=== PATIENT | male | born 1965 | race Caucasian/White ===

== ENCOUNTER → 2020-10-14 11:03 | Outpatient (REF) | payer SELFPAY | LOC: ANHLAB 11:03 | PROVIDERS: PCP Internal Medicine; Visit Provider Nurse Practitioner | DX: D49.2 Neoplasm of unspecified behavior of bone, soft tissue, and skin (principal) | CPT/HCPCS: 88305 ==

== ENCOUNTER → 2021-03-31 14:27 | Outpatient (CLI) | payer SELFPAY ==
--- NOTE | ~2021-03-31 | XR_ITS ---
XR tibia fibula LT 2V DATE: 03/31/2021 15:07 INDICATION: Pain TECHNIQUE: AP and lateral views COMPARISON: 10/11/2019 left ankle FINDINGS: No fracture or dislocation, periosteal reaction or bone destruction. Normal alignment at th e knee and ankle joints. Minimal pericolic stranding, consistent with mild osteoarthritis at the cordoba llofemoral joint. IMPRESSION: Mild osteoarthritis at the patellofemoral joint. Reviewed, dictated and finalized at location A.
== END ==
PROVIDERS: PCP Internal Medicine; Visit Provider Nurse Practitioner
DX: M17.12 Unilateral primary osteoarthritis, left knee (principal)
CPT/HCPCS: 73590

== ENCOUNTER 2021-10-23 14:38 | Outpatient (CLI) | payer OTHER, SELFPAY ==
--- NOTE | ~2021-10-23 | XR_ITS ---
EXAMINATION: XR lumbar spine 2-3V EXAM DATE: 10/23/2021 15:04 INDICATION: Pain after lifting injury 2 weeks ago. TECHNIQUE: Lumber spine frontal, lateral, lateral L5-S1 projections for interpretation. There is no prior study for comparison. FINDINGS: There is moderate disc disease T12-L1 and L2-3, mild to moderate at the other lumbar level s there is moderate lumbar facet arthropathy. These is L2 on L3, L3 on L4 and L4 on L5. 4 retrolisthe sis L5 on S1. No spondylolysis. Sacrum, sacroiliac joints, sacral arcuate lines are intact. Mild thor acolumbar scoliosis. IMPRESSION: Moderate lumbar spondylosis. No acute findings. Reviewed, dictated and finalized at location G. 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
== END 2021-10-23 14:39 | disposition home or self-care (01) ==
PROVIDERS: PCP Internal Medicine; Visit Provider Internal Medicine
DX: M47.26 Other spondylosis with radiculopathy, lumbar region (principal)
CPT/HCPCS: 72100

== ENCOUNTER 2021-11-25 15:36 | Outpatient (CLI) | payer OTHER, SELFPAY ==
--- NOTE | ~2021-11-25 | MR_ITS ---
EXAMINATION: MR lumbar spine wo con DATE: 11/25/2021 16:26 INDICATION: Lumbar radiculopathy. TECHNIQUE: Magnetic resonance imaging (MRI) of the lumbar spine was performed without intravenous con trast. Sequences included sagittal T2-weighted FSE, sagittal T2-weighted FS FSE, sagittal T1-weighted FSE, and axial T2-weighted FSE. COMPARISON: Lumbar spine MRI 07/01/2017 FINDINGS: There is 11 degrees dextroscoliosis of lumbar spine. There is 3 mm retrolisthesis of L2 on L3, L3 on L4, and L4 on L5. Vertebral body heights are normal. There is severely decreased disc heigh t at L1-L2, moderately decreased disc height at L2-L3, severely decreased disc height at L3-L4, moder ately decreased disc height at L4-L5, and severely decreased disc height at L5-S1 with endplate remod eling. The distal spinal cord signal intensity is normal. The conus medullaris is at L1.. The followi ng disc levels are specifically discussed: L1-L2: The disc is bulging and has an annular fissure. There is mild right facet joint osteoarthritis . There is no neural foraminal stenosis. There is mild central canal stenosis. L2-L3: The disc is bulging and has an annular fissure. There is mild bilateral facet joint osteoarthr itis. There is mild bilateral neural foraminal stenosis. There is mild central canal stenosis. L3-L4: The disc is bulging and has an annular fissure. There is mild bilateral facet joint osteoarthr itis. There is mild right and moderate left neural foraminal stenosis. There is mild central canal st enosis. L4-L5: The disc is bulging and has an annular fissure. There is moderate bilateral facet joint osteoa rthritis. There is moderate right and mild left neural foraminal stenosis. There is mild central dyan l stenosis. L5-S1: The disc is bulging and has an annular fissure. There is moderate bilateral facet joint osteoa rthritis. There is mild bilateral neural foraminal stenosis. There is mild central canal stenosis. IMPRESSION: 1. Severe lumbar spondylosis, worsened from 07/01/2017. 2. Lumbar dextroscoliosis. Reviewed, dictated and finalized at location E. RECLAMATION SPECIALIST
== END 2021-11-25 15:37 | disposition home or self-care (01) ==
LOC: ANHIMG 15:36
PROVIDERS: PCP Internal Medicine; Visit Provider Internal Medicine
DX: M47.26 Other spondylosis with radiculopathy, lumbar region (principal)
CPT/HCPCS: 72148

== ENCOUNTER 2022-07-06 08:00 | Outpatient (NON) | payer OTHER, SELFPAY | END 2022-07-06 08:01 | disposition home or self-care (01) | LOC: ANHLAB 07-07 12:32 | PROVIDERS: PCP Internal Medicine; Visit Provider Surgery Plastic and Reconstructive Surgery | DX: D49.2 Neoplasm of unspecified behavior of bone, soft tissue, and skin (principal) | CPT/HCPCS: 88305 ==

== ENCOUNTER 2024-12-21 16:21 | Emergency (ER) | payer OTHER, SELFPAY ==
--- OUTSIDE RECORDS SUMMARY | 2024-12-21 16:23 | XMS_ITS | Clinical Summary ---
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 Name Role Phone Unavailable Primary Care Provider Unavailabl e Social History Tobacco Use Types Packs/Day Years Used Date Smoking Tobacco: Never Assessed Sex and Gender Information Value Date Recorded Sex Assigned at Not on file Legal Sex Male 12:19 PM CDT Gender Identity Not on file Sexual Orientation Not on file Plan of Treatment Health Maintenance Due Date Last Done Comments Hepatitis C Virus (HCV) Screening 1965 TdaP Immunization 1967 Hepatitis B Immunization (1 of 3 - 19+ 3-dose series) 1986 Colonoscopy 2012 Colorectal Cancer Screening 2012 Cologuard 2017 Immunochemical Fecal Occult Blood 2017 Pneumococcal Immunization (5 0+ years) (1 of 1 - PCV) 2017 Zoster Immunization (1 of 2) 2017 PSA Discussion 2022 Influenza Immunization (#1) 2024 SARS-COV-2 Immunization ( - season) 2024 Respiratory Syncytial Virus (RSV) Immunization (Adult) (1 - 1-dose 75+ series) 2042 Meningococcal Immunization (ACWY) Aged Out No longer eligible based on patient's age to complete this topic Pneumococcal Immunization Combined Aged Out No longer eligible based on patient's age to complete this topic Rotavirus Immunization Aged Out No lo nger eligible based on patient's age to complete this topic
[2024-12-21 17:00] VITALS: BP 153/109; PULSE 91; RESP 20; TEMP 36.6; O2SAT 100
--- OUTSIDE RECORDS SUMMARY | 2024-12-21 21:09 | XMS_ITS | Data Portability ---
Author Organization [place] [facility] [employer], Main Office Address [address] [place] [address] Assessment No assessment recorded. Plan of Treatment Reminders Order Date Submit Date Provider Last Modified By Organization Details Last Modified Time Details Appointments Follow Up 15 2024 02:45P BRISEIDA Lea Not available Not available Not available Lab CBC w/ auto diff [email or web address] (Lab), [address] [place], [address], 03/07/2024 10:51:21 CMP, serum or plasma 2023 024 [facility] (Lab), [address] [place], [address], 03/13/2024 15:06:42 lipid panel, serum 2023 024 [facility] (Lab), [address] [place], [address], 03/13/2024 15:06:39 TSH + free T4, serum 2023 024 [facility] (Lab), [address] [place], [address], 03/13/2024 15:06:40 PSA, serum or plasma 2023 024 [facility] (Lab), [address] [place], [address], 03/13/2024 15:06:46 HbA1c (hemoglob in A1c), blood 2023 024 [facility] (Lab), [address] [place], [address], 03/13/2024 15:06:50 TSH, serum or plasma 2023 024 [facility] (Lab), [address] [place], [address], 03/13/2024 15:06:48 thyroid peroxidas e (tpo) Ab, serum 2023 024 [facility] (Lab), [address] [place], [address], 03/13/2024 15:06:45 Hepatitis B virus core Ab, qual immunoass ay, serum or plasma [address] (Lab), [address] [place], [address], 03/14/2024 08:28:41 vitamin B12 + folate, serum or blood 2023 024 [facility] (Lab), [address] [place], [address], 03/13/2024 15:06:47 vitamin D3, 25-hydrox y, serum [address] (Lab), [address] [place], [address], 03/14/2024 08:28:42 testoster one, free + total, serum 2023 024 [facility] (Lab), [address] [place], [address], 03/13/2024 15:06:51 CBC w/ auto diff 2023 024 [facility] (Lab), [address] [place], [address], 03/13/2024 15:06:43 lipid panel, serum 2023 024 [email or web address] [facility] (Lab), [address] [place], [address], 03/14/2024 08:28:[address] referral - Please call patient to schedule an appointme nt. Thank you. 2023 024 [email or web address] [facility], [address] [facility], [address], [place], [address], 06/16/2024 07:45:37 Procedures None recorded. Surgeries None recorded. Imaging None recorded. Medication Orders prednison e 20 mg tablet 2024 025 [facility] #[id number], [address] [place], [address], 12/03/2024 15:50:17 promethaz ine-DM 6.25 mg-15 mg/5 mL oral syrup 2024 025 [id number], [address], [place], [id number], 12/03/2024 15:56:14 dextroamp hetamine- amphetami ne ER 30 mg 24hr capsule,e xtend release 2024 025 [facility] #3259, [address] [place], [address], 12/03/2024 15:53:32 hydrocodo ne 7.5 mg-acetam inophen 325 mg tablet 2023 024 [facility] #3259, [address] [place], [address], 08/30/2024 12:08:04 Depo-Medr ol 80 mg/mL suspensio n for injection 2023 024 [email or web address] Not available 05/15/2024 16:44:21 dextroamp hetamine- amphetami ne ER 30 mg 24hr capsule,e xtend release 2023 024 [facility] #2554, [address] [place], [address], 05/15/2024 16:26:21 Patient TargetsNo targets recorded. Patient InstructionsNo instructions recorded. 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 Thank you. Referring Physician: Perfecto Gallardo, Family Medicine, Encounter Date: 05/15/2024 Results Created Date Observation Date Name Description Value Unit Range Abnormal Flag Note LastModifiedBy Organization Detail LastModifiedTime 03/09/20 24 03/13/2024 LIPID PANEL , STAND SRAVANI cholesterol, total 274 mg/dL <200 high Not Available [facility] [address] [address] [place], [address], 03/13/2024 15:06:39 03/09/20 24 03/13/2024 LIPID PANEL , STAND SRAVANI HDL cholesterol 75 mg/dL > or = 40 normal Not Available [facility] [address] [address] [place], [address], 03/13/2024 15:06:39 03/09/20 24 03/13/2024 LIPID PANEL , STAND SRAVANI triglyceride s 201 mg/dL <150 high If a non-f astin g speci men was colle cted, consi sraay repea t trigl yceri de testi ng on a fasti ng speci men if clini dudley indic ated. Imer harp et al. J. of Clin. Lipid ol. 2015; 9:129 -169. Not Available [facility] [address] [place], [address], 03/13/2024 15:06:39 03/09/20 24 03/13/2024 LIPID PANEL , STAND SRAVANI LDL-choleste rol 162 mg/dL _(jarred c) high Refer ence range : <100 Vlad able range <100 mg/dL for prima ry preve ntion ; <70 mg/dL for patie nts with CHD or diabe tic patie nts with > or = 2 CHD risk facto rs. LDL-C is now calcu lated using the Bonnie n-Hop kins calcu robel n, which is a valid ated novel metho d provi ding leonie r accur acy than the Fried keith equat ion in the estim ation of LDL-C . Bonnie kasper SS et al. KJ. 2013; 310(1 9): 2061- 2068 (http ://ed ucati on.Qu SCIC SA [employer]. com/f aq/FA Q164) Not Available [facility] [address] [address] [place], [address], 03/13/2024 15:06:39 03/09/20 24 03/13/2024 LIPID PANEL , STAND SRAVANI chol/HDLC ratio 3.7 (calc ) <5.0 normal Not Available [facility] [address] [address] [place], [address], 03/13/2024 15:06:39 03/09/20 24 03/13/2024 LIPID PANEL , STAND SRAVANI non HDL cholesterol 199 mg/dL _(jarred c) <130 high For patie nts with diabe bill plus 1 major ASCVD risk facto r, treat ing to a non-H DL-C goal of <100 mg/dL (LDL- C of <70 mg/dL ) is consi dered a thera peuti c optio n. Not Available [facility] [address] [address] [place], [address], 03/13/2024 15:06:39 03/09/20 24 03/13/2024 TSH+F REE T4 TSH 2.45 mIU/L 0.40-4 .50 normal Not Available [facility] [address] [address] [place], [address], 03/13/2024 15:06:40 03/09/20 24 03/13/2024 TSH+F REE T4 T4, free 1.0 NG/dL 0.8-1. 8 normal Not Available [address], [address], 03/13/2024 15:06:40 03/09/20 24 03/13/2024 COMPR EHENS HARSHA METAB OLIC PANEL glucose 93 mg/dL 65-99 normal Fasti ng refer ence inter one[place] Not Available [address], [address], 03/13/2024 15:06:41 03/09/20 24 03/13/2024 COMPR EHENS HARSHA METAB OLIC PANEL urea nitrogen (BUN) 24 mg/dL 7-25 normal Not Available [address], [address], 03/13/2024 15:06:41 03/09/20 24 03/13/2024 COMPR EHENS HARSHA METAB OLIC PANEL creatinine 1.03 mg/dL 0.70-1 .30 normal Not Available [address], [address], 03/13/2024 15:06:41 03/09/20 24 03/13/2024 COMPR EHENS HARSHA METAB OLIC PANEL eGFR 85 mL/mi n/1.7 3m2 > or = 60 normal Not Available [address], [address], 03/13/2024 15:06:41 03/09/20 24 03/13/2024 COMPR EHENS HARSHA METAB OLIC PANEL BUN/creatini ne ratio SEE NOTE: (calc ) 6-22 Not Repor shweta: BUN and Creat inine are withi n refer ence range . Not Available [address], [address], 03/13/2024 15:06:41 03/09/20 24 03/13/2024 COMPR EHENS HARSHA METAB OLIC PANEL sodium 140 mmol/ L 135-14 6 normal Not Available [address], [address], 03/13/2024 15:06:41 03/09/20 24 03/13/2024 COMPR EHENS HARSHA METAB OLIC PANEL potassium 4.5 mmol/ L 3.5-5. 3 normal Not Available [address], [address], 03/13/2024 15:06:41 03/09/20 24 03/13/2024 COMPR EHENS HARSHA METAB OLIC PANEL chloride 103 mmol/ L 98-110 normal Not Available [address], [address], 03/13/2024 15:06:41 03/09/20 24 03/13/2024 COMPR EHENS HARSHA METAB OLIC PANEL carbon dioxide 28 mmol/ L 20-32 normal Not Available [address], [address], 03/13/2024 15:06:41 03/09/20 24 03/13/2024 COMPR EHENS HARSHA METAB OLIC PANEL calcium 9.6 mg/dL 8.6-10 .3 normal Not Available [address], [address], 03/13/2024 15:06:41 03/09/20 24 03/13/2024 COMPR EHENS HARSHA METAB OLIC PANEL protein, total 7.0 g/dL 6.1-8. 1 normal Not Available [address], [address], 03/13/2024 15:06:41 03/09/20 24 03/13/2024 COMPR EHENS HARSHA METAB OLIC PANEL albumin 4.5 g/dL 3.6-5. 1 normal Not Available [address], [address], 03/13/2024 15:06:41 03/09/20 24 03/13/2024 COMPR EHENS HARSHA METAB OLIC PANEL globulin 2.5 g/dL_ (calc ) 1.9-3. 7 normal Not Available [address], [address], 03/13/2024 15:06:41 03/09/20 24 03/13/2024 COMPR EHENS HARSHA METAB OLIC PANEL albumin/glob ulin ratio 1.8 (calc ) 1.0-2. 5 normal Not Available [address], [address], 03/13/2024 15:06:41 03/09/20 24 03/13/2024 COMPR EHENS HARSHA METAB OLIC PANEL bilirubin, total 0.7 mg/dL 0.2-1. 2 normal Not Available [address], [address], 03/13/2024 15:06:41 03/09/20 24 03/13/2024 COMPR EHENS HARSHA METAB OLIC PANEL alkaline phosphatase 64 U/L 35-144 normal Not Available [address], [address], 03/13/2024 15:06:41 03/09/20 24 03/13/2024 COMPR EHENS HARSHA METAB OLIC PANEL AST 18 U/L 10-35 normal Not Available [address], [address], 03/13/2024 15:06:41 03/09/20 24 03/13/2024 COMPR EHENS HARSHA METAB OLIC PANEL ALT 13 U/L 9-46 normal Not Available [address], [address], 03/13/2024 15:06:41 03/09/20 03/13/2024 CBC (INCL UDES DIFF/ PLT) white blood cell count 7.0 thous and/u L 3.8-10 .8 normal Not Available [address], [address], 03/13/2024 15:06:43 03/09/20 24 03/13/2024 CBC (INCL UDES DIFF/ PLT) red blood cell count 4.73 rio on/uL 4.20-5 .80 normal Not Available [address], [address], 03/13/2024 15:06:43 03/09/2003/13/2024 CBC (INCL UDES DIFF/ PLT) hemoglobin 14.7 g/dL 13.2-1 7.1 normal Not Available [address], [address], 03/13/2024 15:06:43 03/09/20 24 03/13/2024 CBC (INCL UDES DIFF/ PLT) hematocrit 44.9 % 38.5-5 0.0 normal Not Available [address], [address], 03/13/2024 15:06:43 03/09/20 24 03/13/2024 CBC (INCL UDES DIFF/ PLT) MCV 94.9 fL 80.0-1 00.0 normal Not Available [address], [address], 03/13/2024 15:06:43 03/09/20 24 03/13/2024 CBC (INCL UDES DIFF/ PLT) MCH 31.1 pg 27.0-3 3.0 normal Not Available [address], [address], 03/13/2024 15:06:43 03/09/20 24 03/13/2024 CBC (INCL UDES DIFF/ PLT) MCHC 32.7 g/dL 32.0-3 6.0 normal Not Available [address], [address], 03/13/2024 15:06:43 03/09/20 24 03/13/2024 CBC (INCL UDES DIFF/ PLT) RDW 12.3 % 11.0-1 5.0 normal Not Available [address], [address], 03/13/2024 15:06:43 03/09/20 24 03/13/2024 CBC (INCL UDES DIFF/ PLT) platelet count 249 thous and/u L 140-40 0 normal Not Available [address], [address], 03/13/2024 15:06:43 03/09/20 24 03/13/2024 CBC (INCL UDES DIFF/ PLT) MPV 10.0 fL 7.5-12 .5 normal Not Available [address], [address], 03/13/2024 15:06:43 03/09/20 24 03/13/2024 CBC (INCL UDES DIFF/ PLT) absolute neutrophils 4613 cells /uL 1500-7 800 normal Not Available [address], [address], 03/13/2024 15:06:43 03/09/20 24 03/13/2024 CBC (INCL UDES DIFF/ PLT) absolute lymphocytes 1533 cells /uL 850-39 00 normal Not Available [facility] [address], [address], 03/13/2024 15:06:43 03/09/20 24 03/13/2024 CBC (INCL UDES DIFF/ PLT) absolute monocytes 693 cells /uL 200-95 0 normal Not Available [address], [address], 03/13/2024 15:06:43 03/09/20 24 03/13/2024 CBC (INCL UDES DIFF/ PLT) absolute eosinophils 112 cells /uL 15-500 normal Not Available [facility] [address], [address], 03/13/2024 15:06:43 03/09/20 24 03/13/2024 CBC (INCL UDES DIFF/ PLT) absolute basophils 49 cells /uL 0-200 normal Not Available [facility] [address], [address], 03/13/2024 15:06:43 03/09/20 24 03/13/2024 CBC (INCL UDES DIFF/ PLT) neutrophils 65.9 % normal Not Available [facility] [address], [address], 03/13/2024 15:06:43 03/09/20 24 03/13/2024 CBC (INCL UDES DIFF/ PLT) lymphocytes 21.9 % normal Not Available [facility] [address], [address], 03/13/2024 15:06:43 03/09/20 24 03/13/2024 CBC (INCL UDES DIFF/ PLT) monocytes 9.9 % normal Not Available [facility] [address], [address], 03/13/2024 15:06:43 03/09/20 24 03/13/2024 CBC (INCL UDES DIFF/ PLT) eosinophils 1.6 % normal Not Available [facility] [address], [address], 03/13/2024 15:06:43 03/09/20 24 03/13/2024 CBC (INCL UDES DIFF/ PLT) basophils 0.7 % normal Not Available [facility] [address], [address], 03/13/2024 15:06:43 03/09/20 24 03/13/2024 THYRO GLOBU ABRAHAM ANTIB ODIES thyroglobuli n antibodies <1 IU/mL < or = 1 Not Available [facility] [address] [address] [place], [address], 03/13/2024 15:06:44 03/09/20 24 03/13/2024 THYRO ID PEROX IDASE ANTIB ODIES thyroid peroxidase antibodies 1 IU/mL <9 Not Available [facility] [address], [address], 03/13/2024 15:06:44 03/09/20 24 03/13/2024 PSA, TOTAL PSA, total 0.59 NG/mL < or = 4.00 normal The total PSA value from this assay syste m is stand ardiz ed again st the WHO stand sravani. The test resul t will be appro ximat gabrielle 20% lower when sam red to the equim olar- stand ardiz ed total PSA (Payne man Coult er). Sam rison of seria l PSA resul ts shoul d be inter prete d with this fact in mind. This test was perfo rmed using the MedTest DX chemi lumin escen t metho d. Value s obtai caroline from diffe rent assay metho ds canno t be used inter mathis eably . PSA level s, regar dless of value , shoul d not be inter prete d as absol [place] evide nce of the prese nce or absen ce of disea se. Not Available [facility] [address] [address] [place], [address], 03/13/2024 15:06:46 03/09/20 24 03/13/2024 VITAM IN B12/F OLATE , SERUM PANEL vitamin B12 444 pg/mL 200-11 00 normal Not Available [facility] [address] [address] [place], [address], 03/13/2024 15:06:47 03/09/20 24 03/13/2024 VITAM IN B12/F OLATE , SERUM PANEL folate, serum 14.8 NG/mL normal Refer ence Range Low: <3.4 Borde rline : 3.4-5 .4 Karrie l: >5.4 Not Available [address] [address] [place], [address], 03/13/2024 15:06:47 03/09/2003/13/2024 TSH W/REF PHILOMENA TO FT4 TSH w/reflex to FT4 2.45 mIU/L 0.40-4 .50 normal Not Available [facility] [address] [address] [place], [address], 03/13/2024 15:06:48 03/09/2003/13/2024 VITAM IN D,25- OH,TO SILAS,I A vitamin D,25-oh,tota l,ia 54 NG/mL 30-100 normal Vitam in D Statu s 25-OH Vitam in D: Defic iency : <20 ng/mL Insuf ficie ncy: 20 - 29 ng/mL Optim al: > or = 30 ng/mL For 25-OH Vitam in D testi ng on patie nts on D2-godwin pplem entat ion and patie nts for whom quant itati on of D2 and D3 fract ions is requi red, the [facility] Assur eD(TM ) 25-OH VIT D, (D2,D 3), LC/MS /MS is recom whit d: order code 15950 (gail ents >2yrs ). See Note 1 Note 1 For addit ional infor barron mendes refer to http: //rosalee martinsQue stDia gnost ics.c om/fa q/FAQ 199 (This link is being provi ded for infor andres encarnacion/ sohail grace purpo ses only. ) Not Available [facility] [address] [address] [place], [address], 03/13/2024 15:06:49 03/09/2003/13/2024 HEMOG LOBIN A1C hemoglobin A1C 5.3 %_of_ total _HGB <5.7 normal For the purpo se of yuliana singh for the prese nce of diabe bill: <5.7% Consi stent with the absen ce of diabe bill 5.7-6 .4% Consi stent with incre ased risk for diabe bill (pred iabet es) > or =6.5% Consi stent with diabe bill This assay resul t is consi stent with a decre ased risk of diabe bill. Curre ntly, no conse nsus exist s omar arias use of hemog lobin A1c for diagn osis of diabe bill in child dayo. Accor ding to Ameri can Diabe bill Assoc iatio n (ADA) guide lines , hemog lobin A1c <7.0% repre sents optim al contr ol in non-p regna nt diabe tic patie nts. Diffe rent metri cs may apply to speci fic patie nt popul ation s. Stand ards of Medic al Care in Diabe bill(A DA). This test was perfo rmed on the Hossein traci c503 platf orm. Effec tive , a delfina e in test platf orms from the Abbot t Archi tect to the Hossein traci c503 may have shift ed HbA1c resul ts sam red to histo rical resul ts. Based on labor atory valid ation testi ng condu cted at [facility] , the Hossein platf orm relat harsha to the Abbot t platf orm had an avera ge incre ase in HbA1c value of < or = 0.3%. This diffe rence is withi n accep shweta varia bilit y estab lishe d by the Natio nal Glyco hemog lobin Stand ardiz ation Progr am. Note that not all indiv idual s will have had a shift in their resul ts and direc t sam rison s betwe en histo rical and curre nt resul ts for testi ng condu cted on diffe rent platf orms is not recom whit d. Not Available [facility] [address], [place], [address], 03/13/2024 15:06:50 03/09/20 24 03/13/2024 TESTO STERO NE, FREE (DIAL YSIS) AND TOTAL ,MS testosterone , total, MS 518 NG/dL 250-11 00 For addit ional infor barron mendes refer to https ://ed ucati on.qu vandana iversonMarkkits. com/f aq/FA Q165 (This link is being provi ded for infor andres nal/e ducat ional purpo ses only. ) (Note ) This test was devel oped and its ethan tical perfo rmanc e coleen cteri stics have been deter mined by [employer]. It has not been clear ed or appro krish by the FDA. This assay has been valid ated pursu ant to the CLIA regul ation s and is used for clini jarred purpo ses. Not Available [facility] [address] [place], [address], 03/13/2024 15:06:51 03/09/20 24 03/13/2024 TESTO STERO NE, FREE (DIAL YSIS) AND TOTAL ,MS testosterone , free 47.9 pg/mL 35.0-1 55.0 (Note ) This test was devel oped and its ethan tical perfo rmanc e coleen cteri stics have been deter mined by [employer]. It has not been clear ed or appro krish by the FDA. This assay has been valid ated pursu ant to the CLIA regul ation s and is used for clini jarred purpo ses. MDF med fusio n [address] [facility] [address] [facility] [address] [phone] Sunday Gomez MD, PhD Not Available [facility] [address] [place], [address], 03/13/2024 15:06:51 03/06/20 24 03/06/2024 MRI, knee, w/o contr ast No observ ation record ed. [email or web address] [facility] [address], [place], [address], 09/07/2024 09:27:34 07/01/20 24 04/16/2024 XR, cervi jarred spine , 2 or 3 view No observ ation record ed. [email or web address] [facility] [address] , [place], [address], 04/24/2024 09:39:33 Result Notes None recorded. Problems Name Problem SNOMED Code Status Onset Date Resolution Date Notes Provider Name and Address Organization Details Recorded Time Insomnia 675023894 Active 2022 Fatuma Gayle RMA null, [place] [facility] 3 16:27:41 Interverteb ral disc prolapse 89858690 Active 2022 LIBIA Dorantes null, [place] [facility] 3 16:28:43 Shoulder pain 77411198 Active 2022 AUDREY DorantesA null, [place] [facility] 3 16:28:52 Attention deficit hyperactivi ty disorder, predominant ly inattentive type 91719654 Active 2022 Fatuma Gayle RMA null, [place] [facility] 3 16:29:13 Chronic low back pain 449797361 Active 2022 Joss Odell MD [address], [address], [place], [address], [facility] [place] [employer] [facility] 3 17:04:35 Attention deficit hyperactivi ty disorder 539350132 Active 2022 Joss Odell MD [address], [address], [place], [address], [employer] [facility] 3 17:07:18 Persistent insomnia 492068517 Active 2022 Joss Odell MD [address], [place], [address], [facility] [place] [employer] [facility] 3 10:06:48 Erectile dysfunction 533383497 Active 2022 Joss Odell MD [address], [address], [place], [address], [place] [facility] [employer] [facility] [employer] 3 11:54:29 Acute sinusitis 46272119 Active 2022 Joss Odell MD [address], [address], [place], [address], [employer] [place] [facility] [facility] 3 12:21:38 Cellulitis 072117060 Active 2022 Joss Odell MD [address], [address], [place], [address], [employer] [place] [employer] [facility] [employer] 3 11:34:18 Folliculiti s 24421866 Active 2022 BRISEIDA Shah [address], [address], [place], [address], [employer] [facility] [employer] [facility] [employer] 3 14:34:34 Injury of left knee 4196549013368 06 Active 2023 BRISEIDA Shah [address], [address], [place], [address], [employer] [facility] [employer] [facility] [employer] 4 12:57:39 Lethargy 659935676 Active 2023 BRISEIDA Shah [address], [address], [place], [address], [employer] [facility] [employer] [facility] [employer] 4 10:44:05 Screening for malignant neoplasm of prostate Active 2023 BRISEIDA Shah [address], [address], [place], [address], [employer] [facility] [employer] [facility] [employer] 4 10:48:19 Chronic neck pain 7075335689585 Active 2023 BRISEIDA Shah [address], [address], [place], [address], [employer] [place] [employer] [facility] [employer] 4 16:58:28 Degeneratio n of cervical interverteb ral disc 30822544 Active 2023 BRISEIDA Shah [address], [address], [place], [address], [place] [facility] 4 09:40:29 Tinnitus of left ear 9166696443942 Active 2023 BRISEIDA Shah [address], [address], [place], [address], [employer] [facility] [employer] [facility] 4 16:19:20 Adult health examination Active 2023 BRISEIDA Shah [address], [address], [place], [address], [employer] [facility] 4 16:32:01 Cough 55504943 Active 2024 BRISEIDA Shah [address], [address], [place], [address], [employer] [facility] 5 15:50:45 Contact dermatitis 79991146 Active 2024 BRISEIDA Shah [address], [address], [place], [address], [employer] [facility] 5 12:39:09 Problem Notes None recorded. Procedures Surgical History Date Name Laterality Status Provider Name and Address Organization Details Recorded Time Ankle Surgery completed Fatuma Gayle [facility] [employer] [facility] 12/30/2022 16:32:22 Hernia Surgery completed Fatuma Gayle Dejon [facility] [employer] [facility] 12/30/2022 16:32:30 Vasectomy completed Fatuma Gayle [facility] [employer] [facility] 12/30/2022 16:32:43 Imaging Results Imaging Date Name Status LastModified by Organ [facility] Details LastModified Time 03/06/2024 MRI, knee, w/o contrast completed [email or web address] [facility] [place] [address] [place], [address], 09/07/2024 09:27:34 04/16/2024 XR, cervical spine, 2 or 3 view completed [id number] [facility] [address] [place], [address], 04/24/2024 09:39:33 Procedure Notes None recorded. Medical Equipment None Reported. Allergies No known drug allergies Medications Name Sig Start Date Stop Date Status Note LastModified by Organization Details LastModified Time promethazin e-DM 6.25 mg-15 mg/5 mL oral syrup TAKE 5 ML BY MOUTH EVERY 4 HOURS NEEDED FOR 10 DAYS active Not Available Not Available No t Available trazodone 50 mg tablet TAKE 1 TABLET BY MOUTH EVERY DAY active Not Available Not Available No t Available azithromyci n 250 mg tablet TAKE 2 TABLETS BY MOUTH TODAY, THEN TAKE 1 TABLET DAILY FOR 4 DAYS 09/13 completed Not Available Not Available Not Available prednisone 20 mg tablet Take 2 tabs PO twice daily for 2 days; 1 tab PO twice daily for 5 days; 1/2 tab PO twice daily for 2 days; 1/2 tab PO once for 1 day. TAKE 2ND DOSE EVERYDAY AT NOON-10 DAY COURSE 2024 active Not Available Not Available Not Avai lable ciprofloxac in 500 mg tablet TAKE 1 TABLET BY MOUTH EVERY 12 HOURS FOR 10 DAYS 03/07 completed Not Available Not Available Not Available sulfamethox azole 800 mg-trimetho prim 160 mg tablet TAKE 1 TABLET BY MOUTH TWICE A DAY FOR 7 DAYS 03/07 completed Not Available Not Available Not Available sildenafil 100 mg tablet Take 1 tablet every day by oral route as needed. 2024 active Not Available Not Available Not Avai lable Depo-Medrol 80 mg/mL suspension for injection Take 1 mL by injection route. 2023 active Not Available Not Available Not Avai lable methocarbam ol 750 mg tablet TAKE 1 TABLET 3 TIMES A DAY BY ORAL ROUTE. active Not Available Not Available No t Available hydrocodone 7.5 mg-acetamin ophen 325 mg tablet Take 1 tablet twice a day by oral route as needed for 30 days. 2024 active Not Available Not Available Not Avai lable cephalexin 500 mg capsule TAKE 1 CAPSULE BY MOUTH TWICE A DAY 12/30 completed Not Available Not Available Not Available neomycin-po lymyxin-dex ameth 3.5 mg/mL-10,00 0 unit/mL-0.1 % eye drops 12/30 completed Not Available Not Available Not Available dextroamphe tamine-amph etamine ER 30 mg 24hr capsule,ext end release TAKE 1 CAPSULE BY MOUTH EVERY DAY active Not Available Not Available No t Available amoxicillin 875 mg-geoffreyiu m clavulanate 125 mg tablet Take 1 tablet every 12 hours by oral route for 10 days. active Not Available Not Available No t Available neomycin 3.5 mg/g-polymy brenda B 10,000 unit/g-dexa meth 0.1 % eye oint 12/30 completed Not Available Not Available Not Available Vitals Date Recorded Body height Body mass index (BMI) Body weight Body temperature Heart rate Oxygen saturation Oxygen saturation in Arterial blood by Pulse oximetry Respiratory rate Systolic blood pressure Diastolic blood pressure Provider Name and Address Organization Details Last Updated DateTime 4 187.96 cm 27.9 kg/m2 80764.5 4 g 98.1 [degF] 79 /min 96 % 96 % 16 /min 160 mm[Hg] 86 mm[Hg] Jimena Noe RN [facility] 4 10:33:52 Date Recorded Body height Body mass index (BMI) Body weight Body temperature Heart rate Oxygen saturation Oxygen saturation in Arterial blood by Pulse oximetry Systolic blood pressure Diastolic blood pressure Provider Name and Address Organization Details Last Updated DateTime 4 187.96 cm 28.6 kg/m2 510631. 1 g 98.6 [degF] 80 /min 95 % 95 % 176 mm[Hg] 88 mm[Hg] Jimena Noe RN [facility] 4 16:13:48 Date Recorded Body height Body mass index (BMI) Body weight Body temperature Heart rate Oxygen saturation Oxygen saturation in Arterial blood by Pulse oximetry Systolic blood pressure Diastolic blood pressure Provider Name and Address Organization Details Last Updated DateTime 4 187.96 cm 28.2 kg/m2 85253.3 2 g 98.4 [degF] 83 /min 96 % 96 % 162 mm[Hg] 90 mm[Hg] Jimena Noe RN [facility] 4 15:48:07 Date Recorded Body height Body mass index (BMI) Body weight Body temperature Heart rate Oxygen saturation Oxygen saturation in Arterial blood by Pulse oximetry Systolic blood pressure Diastolic blood pressure Provider Name and Address Organization Details Last Updated DateTime 5 187.96 cm 30.6 kg/m2 095251. 98 g 98.4 [degF] 80 /min 98 % 98 % 170 mm[Hg] 90 mm[Hg] Fide Vergara RN [facility] 5 15:42:34 Date Recorded Body height Body mass index (BMI) Body weight Body temperature Heart rate Oxygen saturation Oxygen saturation in Arterial blood by Pulse oximetry Systolic blood pressure Diastolic blood pressure Provider Name and Address Organization Details Last Updated DateTime 5 187.96 cm 29.9 kg/m2 589490. 02 g 97.8 [degF] 79 /min 98 % 98 % 138 mm[Hg] 86 mm[Hg] Lana garcia [facility] 5 13:53:28 Social History Question Answer Notes LastModified by Organizat ion Details LastModified Time Tobacco Smoking Status Current Every Day Smoker 1/2ppd LIBIA Dorantes null, [facility] 12/30/2022 16:31:56 How Many Years Have You Smoked Tobacco? 30 [email or web address] Information not available 12/30/2022 Sex: Unknown Functional Status None recorded. Mental Status None recorded. Family History Relationship Description Onset Age of this Age Resolved Age Notes LastModified by Organization Details LastModified Time Father Family history of malignant neoplasm [email or web address] Not available 2022 16:30:23 Mother Heart injury, open [email or web address] Not available 16:30:38 Medical History Condition Response BLINDNESS N RHEUMATIC FEVER N BLADDER PROBLEMS N KIDNEY STONES N MRSA N OTHER # 1 N POLIO N LUNG DISEASE/DISORDER N HISTORY OF DRUG ABUSE N RADIATION / CHEMOTHERAPY N COPD N Other # 2 N BLOOD DISEASES N SURGERY N EAR OR HEARING PROBLEMS N MUMPS N SHINGLES N BOWEL PROBLEMS N DEPRESSION (INCLUDING POST ) N FEMALE PROBLEMS / INFECTIONS N FAILED BACK SYNDROME N STROKE/TIA N THYROID DISEASE N ULCERS N BENIGN PROSTATIC HYPERPLASIA N MEASLES N CERVICALGIA N TB SKIN TEST N HYPOTENSION N MYOCARDIAL INFARCTION N PARAPELGIA N OBESITY N GERD/NAUSEA N ANEURYSM N URINARY/BLADDER/KIDNEY PROBLEMS N CORONARY ARTERY DISEASE (CAD) N MENIERE'S DISEASE N Do you have Advance directive? N ADDICTION CONCERNS N ENDOMETRIOSIS N USE OF BLOOD THINNERS N SKIN PROBLEMS N EMPHYSEMA N GASTROINTESTINAL DISORDER N PERIPHERAL ARTERY DISEASE N MUSCLE,JOINT OR BONE PROBLEMS N GASTROINTESTINAL BLEEDING N BLOOD CLOTS N ASTHMA N CATARACTS N Abdominal Pain N ERECTILE DYSFUNCTION N ARTERIAL INSUFFICIENCY N GI PROBLEMS N CHF N Low Testosterone N NEUROPATHY N INFERTILITY N AIDS/HIV N FRACTURES N CHEMOTHERAPY / RADIATION N VISION/EYE PROBLEMS N LIVER DISEASE N HYPERTENSION N TOURETTE'S N ANXIETY DISORDER N BLOOD TRANSFUSION N ANEMIA/BLOOD DISORDER N CHRONIC EAR INFECTIONS N BRONCHITIS N TUBERCULOSIS N GLAUCOMA N FOOT PROBLEM N DIVERTICULITIS N SLEEP APNEA N CHICKENPOX N BACK INJECTIONS N ALLERGIES/HAYFEVER N INFECTIOUS DISEASE N PROSTATE N HEART ARRHYTHMIA N INSOMNIA Y ESRD N HIGH CHOLESTEROL / HYPERLIPIDEMIA N HYPERTHYROIDISM N EYE PROBLEMS N PVD N EATING DISORDER N EDEMA N CHRONIC PAIN SYNDROME N CONSTIPATION N CAROTID BLOCKAGE N BACK / NECK PROBLEMS N HAVE YOU BEEN HOSPITALIZED OR SEEN IN [facility] IN THE PAST YEAR ? N ATHEROSCLEROSIS N BREAST PROBLEMS N DIALYSIS N POLYCYSTIC OVARIES N ECZEMA N FIBROMYALGIA N OSTEOPOROSIS N ARTHRITIS N NO SIGNIFICANT PAST MEDICAL HISTORY N APPENDICITIS N DIABETES, TYPE N BAD TEETH N VON WILLIBRAND'S DISEASE N HEARTBURN / REFLUX Y ADD/ADHD Y AUTISM SPECTRUM DISORDER (ASD) N POST LAMINECTOMY SYNDROME N HEPATITIS / LIVER DISEASE N PULMONARY DISEASE N GOUT N SLEEP DISORDER N ALZHEIMER'S DISEASE N PAIN N HERPES N DEMENTIA N SEIZURES/EPILEPSY N HEADACHES/MIGRAINES N VASCULAR DISEASE N PACEMAKER N DIZZINESS N KIDNEY DISEASE N HEART DISEASE/HEART PROBLEMS N SCARLET FEVER N MULTIPLE SCLEROSIS N MENTAL DISORDER/ILLNESS N DEVELOPMENTAL OR BEHAVIORAL DISORDERS N NEUROPSYCHOLOGICAL N CARDIAC ARRHYTHMIA N CANCER: SPECIFY N PNEUMONIA N Gall Stones N ATRIAL FIBRILLATION N PULMONARY EMBOLISM N AUTOIMMUNE DISEASE N Past Encounters Encounter ID Performer Location Encounter Start Date Encounter Closed Date Diagnosis/Indication Diagnosis SNOMED-CT Code Diagnosis ICD10 Code Diagnosis Note [id number] Joss Odell MD [facility] Marily freitas [address] [place] [address] [place] [address] 12/30/2022 16:17:10 12/30/2022 17:12:38 Chronic low back pain 817188946 M54.50 Attention deficit hyperactivity disorder 976968446 F90.9 [id number] Joss Odell MD [facility] [place] [address] [place] [address] [place] [address] 04/01/2023 11:21:43 04/01/2023 12:07:42 Erectile dysfunction 069914298 F52.21 Attention deficit hyperactivity disorder, predominantly inattentive type 54131086 F90.0 Call for refills [id number] Joss Odell MD [facility] [place] [address] , [place] [address] 07/01/2023 11:19:14 07/01/2023 11:45:22 Chronic low back pain 029848286 M54.50 call for refills Attention deficit hyperactivity disorder, predominantly inattentive type 25205794 F90.0 Call for refills [id number] BRISEIDA Shah [facility] [place] [address] [facility] [place] [address] 09/13/2023 14:09:00 09/13/2023 14:38:50 Folliculitis 17303115 L73.9 left calf [id number] BRISEIDA Shah [facility] [place] [address] [place] [address] [place] [address] 11/02/2023 15:56:09 11/02/2023 16:34:00 Attention deficit hyperactivity disorder, predominantly inattentive type 23720442 F90.0 Chronic low back pain 27 6257911 M54.50 Erectile dysfunction 860 848661 F52.21 Insomnia 504281861 G47.0 0 Interverte bral disc prolapse 84566505 M51.9 [id number] BRISEIDA Shah [facility] [place] [address] [place] [address] y , [place] [address] 01/05/2024 12:39:23 01/05/2024 13:04:58 Injury of left knee 4808525252 88719 S89.92XA Persistent insomnia 1919 60916 G47.09 Erectile dysfunction 860 998354 F52.21 Folliculitis 02655329 L7 3.9 left calf Attention deficit hyperactivity disorder, predominantly inattentive type 77990374 F90.0 Chronic low back pain 27 6453309 M54.50 Insomnia 307986353 G47.0 0 Interverte bral disc prolapse 60058347 M51.9 [id number] BRISEIDA Shah [facility] [place] [address] [facility] [place] [address] 03/07/2024 10:22:10 03/07/2024 10:51:32 Lethargy 330868377 R53.83 Diabetes m ellitus screening 061708720 Z13.1 Hyperlipid emia screening 113487467 Z13.220 Screening for disorder 066503551 Z13.9 Thyroid di sorder screening 545455590 Z13.29 Screening for malignant neoplasm of prostate 707155645 Z12.5 [id number] BRISEIDA Shah [facility] [place] [address] [facility] [place] [address] 05/15/2024 15:49:38 05/15/2024 16:32:02 Degeneration of cervical intervertebral disc 03872378 M50.30 Tinnitus of left ear 483 8976423 106 H93.12 Attention deficit hyperactivity disorder 265284146 F90.9 Interverte bral disc prolapse 33555302 M51.9 Adult heal th examination 595542238 Z00.00 Chronic low back pain 27 6424853 M54.50 Chronic neck pain 432599 8645 107 M54.2 Insomnia 682400123 G47.0 0 Erectile dysfunction 860 701896 F52.21 Attention deficit hyperactivity disorder, predominantly inattentive type 92027858 F90.0 [id number] BRISEIDA Shah [facility] [place] [address] [facility] [place] [address] 08/28/2024 15:32:39 08/28/2024 16:04:17 Chronic low back pain 116542418 M54.50 Attention deficit hyperactivity disorder, predominantly inattentive type 03536513 F90.0 Degenerati on of cervical intervertebral disc 92476613 M50.30 Insomnia 526213689 G47.0 0 Interverte bral disc prolapse 68506016 M51.9 [id number] BRISEIDA Shah [place] [address] [place] [address] 12/03/2024 15:32:47 12/03/2024 15:57:53 Attention deficit hyperactivity disorder, predominantly inattentive type 68231191 F90.0 Degenerati on of cervical intervertebral disc 34481466 M50.30 Persistent insomnia 1919 67231 G47.09 Cough 01061351 R05.9 Attention deficit hyperactivity disorder 397724033 F90.9 [id number] Danielle Hooks [facility] [address] [address] 12/20/2024 12:19:57 12/20/2024 15:11:00 Contact dermatitis 78134093 L25.9 Chronic low back pain 27 9380385 M54.50 Health Concerns Section Related Observation LastModified by Organization Detai ls LastModified Time None Recorded Concern Status LastModified by Organization Details LastModified Time None Recorded Advance Directives Directive None Recorded Payers Encounter Date Sequence Insurance Name Policy Number Policy Cedeño Covered Member ID Cedeño Member ID Guarantor Name 03/07/2024 1 [employer] - PHCS - DOS ON OR AFTER 2022 (PPO) Davion Burgess [id number] Aditya Ricardo 05/15/2024 1 [employer] - [employer] - DOS ON OR AFTER 2022 (PPO) Davion Burgess [id number] Aditya Ricardo 08/28/2024 1 [employer] - [employer] - DOS ON OR AFTER 2022 (PPO) Davion Burgess [id number] Aditya Ricardo 12/03/2024 1 [facility] - PHCS - DOS ON OR AFTER 2022 (PPO) Davion Burgess [id number] Aditya Ricardo Notes Date Note Type Note Provider Name and Address Organization Details Recorded Time 03/07/2024 text/html 1 month no energy BRISEIDA Shah [address], [place], [address], [facility] 03/27/2024 12:24:02 05/15/2024 text/html 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 tinnitus left and decreased hearing : bad BRISEIDA Shah [address], [place], [address], [employer] 05/16/2024 12:07:32 08/28/2024 text/html no changes BRISEIDA Shah [address], [place], [address], [facility] [employer] 08/30/2024 14:39:11 12/03/2024 text/html cold , went away . cough now , nearly cut thumb off . fell on low fence in snow /ice on Saturday 12/02 . BRISEIDA Shah [address], [place], [address], [facility] [employer] 12/04/2024 14:14:57
--- OUTSIDE RECORDS SUMMARY | 2024-12-21 21:09 | XMS_ITS | Continuity of Care Document ---
Author Name [facility] Organization [facility] Care Team Providers Care Autotransfusionist Name Role Phone [facility] Unavailable Unavailable Social History Combined list of available smoking, tobacco, and other social history from Department of Defense and Veterans Affairs facilities. Social History Type Response Date Comment Sourc e This section is an empty social history section. [facility]
--- OUTSIDE RECORDS SUMMARY | 2024-12-21 21:09 | XMS_ITS | Clinical Summary ---
Author Organization [facility] Address [address] [place] [address] Phone Care Team Providers Care Food Operations Manager Name Role Phone Unavailable Primary Care Provider [...]
--- NOTE | 2024-12-21 21:16 | ED.GENADULT ---
HPI - General Adult General Chief complaint: Skin/Abscess/Foreign Body Stated complaint: potential shingles Time Seen by Provider: 12/21/24 21:01 History of Present Illness HPI narrative: Patient a 59-year-old gentleman who presents emergency department with chief complaint of possible shingles. Patient reports that he started having pain and noticed a rash that popped up on the right side of his neck and head yesterday the patient was seen by his primary care provider and at was given a shot of steroids. The patient states now he has a burning rash that is vesicular and zoster form Related Data Allergies Allergy/AdvReac Type Severity Reaction Status Date / Time No Known Allergies Allergy Unknown Verified 12/21/24 17:03 Review of Systems Review of Systems: A 10 system review of systems was completed on the patient and is negative except for what is stated in the HPI. Nursing and ancillary documentation was reviewed. [facility] Past Medical History Medical History Hearing loss Insomnia Lumbar radiculopathy, chronic Attention-deficit hyperactivity disorder, unspecified type Chronic GERD Hyperlipidemia Family History Family History Mother Family history of heart disease in male family member before age 55 Other Family history of cardiovascular disease Family history of malignant neoplasm Social History Social History Smoking packs per day: 0.5 Smoking cigarettes per day: 10.0 Smoking status: Current some day smoker Tobacco type: cigarettes and e-cigarettes/vaping Alcohol intake: current Drinks per week: 3 Alcohol use details: occasionally Substance use: never Substance use type: does not use Lack of Transportation: No Lack of Food: Never True Current Housing: I Have Housing Concerned About Future Housing: No Difficulty Paying Gas/Electric Bills: No Difficulty Paying for Meds: No Currently Unemployed: No Education: Associate Degree Difficulty w/ Childcare or Family Care: No Gender identity (if verbalized by the patient): Male Exam Narrative: GENERAL: Well-appearing, well-nourished, and in no acute distress. HEAD: Normocephalic, atraumatic. EYES: PERRLA and EOMI. ENT: Nares clear, no rhinorrhea or epistaxis. Mucous membranes moist. NECK: Supple. CHEST: Clear to auscultation. No respiratory distress. HEART: Regular rate and rhythm. No murmur heard. Normal peripheral pulses. ABDOMEN: Soft, nontender, nondistended, normal active bowel sounds. EXTREMITIES: Normal range of motion. No edema. SKIN: Warm, dry, zoster form rash. NEURO: No focal deficits. Alert and oriented x3. PSYCH: Normal mood and affect. Course Vital Signs Vital signs: Vital Signs Temperature 36.6 C 12/21/24 17:00 Pulse Rate 91 12/21/24 17:00 Respiratory Rate 20 12/21/24 17:00 Blood Pressure 153/109 H 12/21/24 17:00 Pulse Oximetry 100 12/21/24 17:00 Oxygen Delivery Room Air 12/21/24 17:00 Temperature 36.6 C 12/21/24 17:00 Pulse Rate 91 12/21/24 17:00 Respiratory Rate 20 12/21/24 17:00 Blood Pressure 153/109 H 12/21/24 17:00 Pulse Oximetry 100 12/21/24 17:00 Oxygen Delivery Room Air 12/21/24 17:00 Medical Decision Making [facility] Narrative Medical decision making narrative: Differential diagnosis includes electrolyte abnormality, herpes zoster, trigeminal neuralgia The patient's exam is consistent with herpes zoster Patient was started on antivirals and given a prescription for [place] Vital Signs Vital Signs: Vital Signs Temperature 36.6 C 12/21/24 17:00 Pulse Rate 91 12/21/24 17:00 Respiratory Rate 20 12/21/24 17:00 Blood Pressure 153/109 H 12/21/24 17:00 Pulse Oximetry 100 12/21/24 17:00 Oxygen Delivery Room Air 12/21/24 17:00 Temperature 36.6 C 12/21/24 17:00 Pulse Rate 91 12/21/24 17:00 Respiratory Rate 20 12/21/24 17:00 Blood Pressure 153/109 H 12/21/24 17:00 Pulse Oximetry 100 12/21/24 17:00 Oxygen Delivery Room Air 12/21/24 17:00 Discharge Plan Discharge Clinical Impression: Shingles Qualifiers: Herpes zoster complications: without complications Qualified Code(s): B02.9 - Zoster without complications Patient Disposition: Home, Self-Care Condition: Stable Instructions: Antibiotic Form, Shingles (ED) Patient Language: Georgian Prescriptions: New valacyclovir 1 gram tablet 1,000 mg PO TID Qty: 21 0RF hydrocodone-acetaminophen 5-325 mg tablet 1 tablet PO Q6H PRN (Reason: pain) 3 Days Qty: 12 0RF No Action esomeprazole magnesium [Nexium] 20 mg capsule,delayed release(DR/EC) 20 mg PO DAILY Qty: 30 0RF trazodone 50 mg tablet See Rx Instructions .ROUTE .COMPLEX Qty: 90 1RF Dose Instruction: TAKE 1 TABLET BY MOUTH AT BEDTIME FOR SLEEP Rx Instructions: TAKE 1 TABLET BY MOUTH AT BEDTIME FOR SLEEP dextroamphetamine-amphetamine [Adderall XR] 30 mg capsule,extended release 24hr 30 mg PO DAILY Qty: 30 0RF Rx Instructions: F90.9 hydrocodone-acetaminophen 7.5-325 mg tablet 1 tablet PO Q8H PRN (Reason: pain) Qty: 30 0RF Follow-up/Referrals: Cass,Joss Bare MD [Primary Care Provider] - Time of Disposition: :
--- NOTE | 2024-12-21 21:37 | PC.NURSE ---
Pt is aware of medication is opioid however, pt states he is not opioid naive from past medical surgeries. Pt states he lives 20 minutes away and does not get dizzy or lightheaded from pain medication.
[2024-12-21 21:49] VITALS: BP 142/80; PULSE 89; RESP 20; TEMP 37.2; O2SAT 97
[2024-12-21] MEDS: valACYclovir HCL 500 MG TABLET 1000 MG PO (22:00)
--- NOTE | 2024-12-21 22:06 | PC.NURSE ---
Pt driving, CHRISTIANO Meneses stated not to give to pt unless pts will pick pt up. Pt states he will not take the IM shot and will get the norco or take tylenol at home from pain.
== END 2024-12-21 22:08 | disposition home or self-care (01) ==
PROVIDERS: Emergency Provider Emergency Medicine; PCP Family Medicine
DX: B02.9 Zoster without complications (principal); K21.9 Gastro-esophageal reflux disease without esophagitis; E78.5 Hyperlipidemia, unspecified; F90.9 Attention-deficit hyperactivity disorder, unspecified type; F17.210 Nicotine dependence, cigarettes, uncomplicated; F17.290 Nicotine dependence, other tobacco product, uncomplicated; Z79.899 Other long term (current) drug therapy
CPT/HCPCS: 99283; A9270